=== PATIENT | female | born 1995 ===

== ENCOUNTER 2018-09-05 12:24 | Emergency (ER) | payer OTHER ==
[2018-09-05 12:41] VITALS: RESP 18
[2018-09-05 14:40] VITALS: BP 122/70; PULSE 72; TEMP 98.6; O2SAT 100
--- NOTE | 2018-09-05 14:53 | ED PDOC ---
HPI: General Adult Time Seen by Provider: 09/05/18 12:52 Chief Complaint (Nursing): ENT Problem Chief Complaint (Provider): left ear bleed History Per: Patient History/Exam Limitations: no limitations Onset/Duration Of Symptoms: Hrs (this morning) Current Symptoms Are (Timing): Still Present Additional Complaint(s): 22 year old female, with no significant past medical history, who presents to the emergency department complaining of waking up with blood in her left ear. Patient is also complaining of generalized left sided ear/facial discomfort. She denies any fever, chills, night sweats, throat or ear pain. No injuries or trauma to left ear prior to onset of symptoms. No further medical complaints. PMD: None provided. Past Medical History Reviewed: Historical Data, Nursing Documentation, Vital Signs Vital Signs: Last Vital Signs Temp 98.6 F 09/05/18 14:40 Pulse 72 09/05/18 14:40 Resp 18 09/05/18 14:40 BP 122/70 09/05/18 14:40 Pulse Ox 100 09/05/18 14:40 - Medical History PMH: No Chronic Diseases Denies: Chronic Kidney Disease - Surgical History Surgical History: No Surg Hx - Family History Family History: States: Unknown Family Hx - Social History Current smoker - smoking cessation education provided: No Alcohol: None Drugs: Denies - Home Medications Home Medications: Ambulatory Orders Medication Instructions Recorded Amoxicillin/Clavulanate [Augmentin 1 tab PO BID 10 Days tab 09/05/18 500 MG-125 MG] Ciprofloxacin/Dexamethasone 1 drop TOP BID 7 Days bottle 09/05/18 [Ciprodex Otic] - Allergies Allergies/Adverse Reactions: Allergies Allergy/AdvReac Type Severity Reaction Status Date / Time No Known Allergies Allergy Verified 09/05/18 12:39 Review of Systems ROS Statement: Except As Marked, All Systems Reviewed And Found Negative Constitutional: Negative for: Fever, Chills, Sweats ENT: Positive for: Other (blood on left ear and generalized ledt sided facial discomfort). Negative for: Ear Pain, Throat Pain Physical Exam - Reviewed Nursing Documentation Reviewed: Yes Vital Signs Reviewed: Yes - Physical Exam Appears: Positive for: No Acute Distress Head Exam: Positive for: ATRAUMATIC, NORMAL INSPECTION, NORMOCEPHALIC Skin: Positive for: Normal Color, Warm, Dry Eye Exam: Positive for: Normal appearance, EOMI, PERRL ENT: Positive for: Pharynx Is (clear ), Other (visible blood noted externally on left ear. TM unable to be visualized due to blood in canal. No edema noted on entrance to canal. No obvious lacerations or trauma. Nose intact) Neck: Positive for: Normal, Painless ROM Cardiovascular/Chest: Positive for: Regular Rate, Rhythm. Negative for: Murmur Respiratory: Positive for: Normal Breath Sounds (CTA bilaterally). Negative for: Respiratory Distress Extremity: Positive for: Normal ROM (upper and lower extremities). Negative for: Deformity, Swelling Neurologic/Psych: Positive for: Alert, Oriented. Negative for: Motor/Sensory Deficits - ECG O2 Sat by Pulse Oximetry: 100 (RA) Pulse Ox Interpretation: Normal Medical Decision Making Medical Decision Making: Time: 12:52 Initial Impression: Left ear pain Initial Plan: Left ear flushed with approximately 10 ccs of normal saline. However, TM is still unabel to be visualized as obscured by blood. Attempted to clear blood from entrance of tympanic canal w/ cotton swab, no probing. Will treat patient for presumed TM perforation with Ciprodex Otic drops and Augmentin PO. Scribe Attestation: Documented by Zach Moreno, acting as a scribe for Isabel James PA-C Provider Scribe Attestation: All medical record entries made by the Scribe were at my direction and personally dictated by me. I have reviewed the chart and agree that the record accurately reflects my personal performance of the history, physical exam, medical decision making, and the department course for this patient. I have also personally directed, reviewed, and agree with the discharge instructions and disposition. Disposition - Clinical Impression Clinical Impression: Left ear pain - Disposition Referrals: [facility] [Outside] Disposition Time: 14:15 Condition: STABLE Additional Instructions: Return to ER if bleeding or pain worsen despite therapy or f/u with PMD Prescriptions: Amoxicillin/Clavulanate [Augmentin 500 MG-125 MG] 1 tab PO BID 10 Days tab Ciprofloxacin/Dexamethasone [Ciprodex Otic] 1 drop TOP BID 7 Days bottle Forms: [employer] ([place]ian), [facility] ED School/Work Excuse Print Language: [place]
== END 2018-09-05 14:30 | disposition home or self-care (01) ==
LOC: H.ER 12:24
DX: H92.02 Otalgia, left ear (principal)